=== PATIENT | female | born 1970 | race Caucasian/White ===

== ENCOUNTER 2023-06-05 19:42 | Outpatient (CLI) | payer MEDICARE ==
--- NOTE | 2023-06-18 06:35 | SLS ---
SLEEP STUDY This is a CPAP titration report. HISTORY OF PRESENT ILLNESS: This is a 52-year-old female patient diagnosed having severe DEEDEE with an AHI of 87.5. She is coming in for a CPAP titration. She is known to have chronic systolic heart failure, diabetes mellitus, and previous history of CVA with right-sided weakness, lupus, and intermittent bronchial asthma. The patient is also obese. PERTINENT PHYSICAL FINDINGS: Height is 5 feet 2 inches, weight is 248, BMI 45.4. TECHNICAL DESCRIPTION: The sleep evaluation of the patient consisted of clinical polysomnography, nocturnal respiratory battery, left and right anterior tibialis surface electromyography. The standard montage for the clinical polysomnography included the EEG, EOG, EMG, and EKG. Respiratory battery included measurements of nasal/buccal airflow, thoracic, and/or abdominal effort and intercostal surface EMG. Nocturnal oxyhemoglobin saturations were obtained by finger oximetry. Digital video and audio monitoring were done throughout the entire night to check or parasomnias. Step-hunter titration with positive airway pressure was utilized during the study to control the respiratory events. SLEEP ARCHITECTURE: The total time in bed was 415.5 minutes. Total sleep time was 383.5 minutes. The sleep efficiency was calculated to be at 92.3%. Latency to sleep onset was 10.5 minutes. Latency to REM sleep was 312.0 minutes. The sleep architecture was characterized by 11.5% stage I, 72.2% stage II, 68% stage III, and 0.3% REM sleep. Wake after sleep onset time was 15.5 minutes. RESPIRATORY ANALYSIS: The patient was started on CPAP therapy initially at a pressure of 8 cm of water and the pressure was gradually increased by increments of 1 cm to reach a maximum pressure of 18 cm of water. I carefully reviewed the CPAP titration taking into account the patient's sleep stage and body position. There was significant improvement in the respiratory status with elimination of obstructive respiratory events without emergence of any central events. The patient was able to tolerate CPAP therapy well. The patient did extremely well at pressures of 15 cm and above. Note that there was only limited REM sleep and the majority of the sleep study was done during non-REM sleep and the patient was studied in supine and non-supine body position. Oxygenation improved and there was no significant desaturation on various CPAP pressures used. SLEEP CONTINUITY SUMMARY: The patient had a total of 58 arousals with an index of 9.1. Respiratory arousal index was 0.3. PERIODIC LIMB MOVEMENT ACTIVITY: Total of 329 periodic limb movement activity with an index of 51.5. Only 7 periodic limb movement activity with arousals with an index of 1.1. CARDIAC SUMMARY: Average heart rate was 72. Minimum heart rate was 70. Maximum heart rate was 75. ASSESSMENT: 1. Severe symptomatic obstructive sleep apnea with a baseline AHI of 87.5. The patient underwent a successful CPAP titration. 2. Severe nocturnal oxygen desaturation recovered with CPAP therapy. 3. 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 4. Systolic heart failure. 5. Diabetes mellitus. 6. History of cerebrovascular accident with right-sided weakness. 7. History of lupus. 8. Prior bronchial asthma. 9. Obesity with a BMI of 45.4. PLAN: We will start the patient on CPAP therapy. Recommend APAP machine and this would be set at pressures of 10 minimum and 18 maximum, and the patient is going to be offered an AirFit F20 medium-sized full-face mask. Encouraged weight loss. Optimize sleep hygiene measures. Anticipate clinical improvement while being on CPAP therapy and the patient will see me back in the office in 30 to 90 days to assess clinical response and compliancy. MMODL / IJN: [id number] /
== END 2023-06-06 06:05 | disposition home or self-care (01) ==
LOC: 3 N SLEEP 19:42
PROVIDERS: ATTEND Internal Medicine Critical Care Medicine
DX: G47.33 Obstructive sleep apnea (adult) (pediatric) (principal); G47.10 Hypersomnia, unspecified; I50.20 Unspecified systolic (congestive) heart failure; E11.9 Type 2 diabetes mellitus without complications; I63.9 Cerebral infarction, unspecified; J45.909 Unspecified asthma, uncomplicated; E66.9 Obesity, unspecified; Z68.42 Body mass index [BMI] 45.0-49.9, adult; Z99.89 Dependence on other enabling machines and devices; Z87.39 Personal history of other diseases of the musculoskeletal system and connective tissue
CPT/HCPCS: 95811